=== PATIENT | male | born 1965 | race Caucasian/White ===

== ENCOUNTER 2020-10-12 10:16 | Day surgery (SDC) | payer BC ==
[2020-10-12] MEDS ORDERED: LACTATED RINGERS 1,000 ML IV ONE (10:50)
[2020-10-12 10:58] VITALS: RESP 16; TEMP 97.6
[2020-10-12 11:24] LABS: Glucose,Whole Blood 167 mg/dL (75-99)
[2020-10-12] MEDS ORDERED: PROPOFOL 10 MG/ML 20 ML VIAL IV ONE (12:46)
--- NOTE | 2020-10-12 13:19 | P.PCN ---
Date of Procedure: 10/12/20 Description of Procedure: BRIEF HISTORY: Patient is a 55-year-old male presenting for outpatient colonoscopy for screening for malignant neoplasm of the colon. He reports remote history of colonoscopy 15 years ago. No change in bowel habits, blood per rectum or abdominal pain. No family history of colon cancer. PROCEDURE PERFORMED: Colonoscopy. PREOPERATIVE DIAGNOSIS: Screening for malignant neoplasm colon, patient reports last colonoscopy 15 years ago. ESTIMATED BLOOD LOSS: Minimal. IV sedation per Anesthesia. PROCEDURE: After informed consent was obtained, the patient, was brought into the endoscopy unit. IV sedation was administered by Anesthesia under continuous monitoring. Digital rectal examination was normal. Initially the Olympus CF-190 flexible video colonoscope was then inserted in the rectum, gradually advanced into the cecum without any difficulty. Careful examination was performed as the scope was gradually being withdrawn. Ileocecal valve and the appendiceal orifice were visualized and appeared normal. Prep was excellent. Mucosa of the cecum, ascending colon, transverse colon, descending colon, sigmoid colon, and rectum appeared normal except for a few scattered diverticula noted in the sigmoid colon . Retroflexion was performed in the rectum and no lesions were seen. The patient tolerated the procedure well. IMPRESSION: Mild sigmoid diverticulosis. Otherwise, normal-appearing colon from rectum to cecum . RECOMMENDATIONS: Findings of this examination were discussed with the patient and his family. Okay to resume diet. Okay to resume medications. Recommend repeat colonoscopy in 10 years for screening for malignant neoplasm of the colon, or sooner if signs or symptoms which warrant further evaluation develop.
[2020-10-12 13:42] VITALS: BP 150/83; PULSE 71
== END 2020-10-12 13:56 | disposition home or self-care (01) ==
LOC: ORWHC2ENDO 10:16
PROVIDERS: ATTEND Internal Medicine
DX: Z12.11 Encounter for screening for malignant neoplasm of colon (principal); K57.30 Diverticulosis of large intestine without perforation or abscess without bleeding; I10 Essential (primary) hypertension; E78.5 Hyperlipidemia, unspecified; E11.9 Type 2 diabetes mellitus without complications; M10.9 Gout, unspecified; Z98.890 Other specified postprocedural states; Z88.8 Allergy status to other drugs, medicaments and biological substances; Z79.899 Other long term (current) drug therapy; Z79.82 Long term (current) use of aspirin; Z79.84 Long term (current) use of oral hypoglycemic drugs; Z90.49 Acquired absence of other specified parts of digestive tract
CPT/HCPCS: J2704; G0121